=== PATIENT | female | born 1980 | race Caucasian/White ===

== ENCOUNTER 2016-08-01 19:55 | Emergency (ER) | payer OTHER | END 2016-08-01 21:27 | disposition home or self-care (01) | LOC: ER 19:55 | DX: R53.83 Other fatigue (principal); T44.3X5A Adverse effect of other parasympatholytics [anticholinergics and antimuscarinics] and spasmolytics, initial encounter; Z98.51 Tubal ligation status; Z88.8 Allergy status to other drugs, medicaments and biological substances; Z79.899 Other long term (current) drug therapy | CPT/HCPCS: 36415; 80307; 96360; G0480 ==